=== PATIENT | female | born 1970 | race African-American/Black ===

== ENCOUNTER 2017-12-25 18:55 | Emergency (ER) | payer BC, OTHER ==
[~2017-12-25] VITALS: Ht 162.6 cm; Wt 65.3 kg
--- NOTE | ~2017-12-25 | EKG ---
[place] [address] [facility] [place] [address] ELECTROCARDIOGRAM REPORT Name: SALINAS SALEH Room #: [facility] JASON Sellers#: [id number] Admission: 12/25/17 Attend Phys: Discharge: 12/25/17 Date of : 66 Report #: [id number] THIS REPORT FOR: //name// Formerly [facility] ED Test Date: 2017-12-25 Test Time: 19:07:01 Pat Name: SALINAS SALEH Department: Room: Gender: F Chin Strap Cutter: JONY : 1970 Requested By: Jeffrey Darling Order Number: [id number] MD: Wilfred Wilson Measurements Intervals [place] Rate: 63 P: 52 DE: 146 QRS: 48 QRSD: 75 T: 8 QT: 413 QTc: 423 Interpretive Statements Sinus rhythm Probable left atrial enlargement No previous ECG available for comparison Electronically Signed On 12-28-2017 7:58:05 CDT by Wilfred Wilson [email or web address] <ELECTRONICALLY SIGNED> By: Wilfred Wilson MD 12/28/17 0758 [id number] Wilfred Wilson MD /JUDITH
[2017-12-25 19:51] LABS: ABSOLUTE NEUTROPHILS 1.8 thou/uL (1.4-8.2); BASOPHILS 0.2 % (0.0-2.0); EOSINOPHILS 0.9 % (0.0-3.0); HEMATOCRIT 40.3 % (37.0-47.0); HEMOGLOBIN 12.7 gm/dL (12.0-15.0); MCH 22.3 pg (26.0-34.0); MCHC 31.4 g/dL (28.0-37.0); MCV 70.8 fL (80.0-100.0); MONOCYTES 5.7 % (1.0-8.0); POLYS 41.2 % (36.0-66.0); RBC 5.69 mil/uL (4.20-5.00); RDW 14.6 % (10.5-14.5); WBC 4.4 thou/uL (4.0-11.0)
[2017-12-25 20:04] LABS: ANION GAP 12 mmol/L (7-16); BUN 15 mg/dL (7-18); CALCIUM 9.1 mg/dL (8.5-10.1); CHLORIDE 100 mmol/L (98-107); CO2 23 mmol/L (21-32); GLUCOSE 84 mg/dL (74-106); POTASSIUM 4.6 mmol/L (3.5-5.1); SODIUM 135 mmol/L (136-145); TOTAL BILIRUBIN 0.8 mg/dL (<0.1-1.0); TOTAL PROTEIN 7.9 g/dL (6.4-8.2)
[2017-12-25 20:18] LABS: PLATELET COUNT 153 thou/uL (150-400)
[2017-12-25 20:19] LABS: ANISOCYTOSIS 1+; HYPOCHROMASIA 2+; LARGE PLATELETS OCCASIONAL; MICROCYTES 1+; PLATELET ESTIMATE NORMAL
[2017-12-25 20:23] LABS: TROPONIN-I < 0.04 ng/mL (<0.06)
[2017-12-25 20:35] LABS: ALBUMIN 4.3 g/dL (3.4-5.0); CREATININE 0.7 mg/dL (0.6-1.0); SGOT 28 U/L (15-37); SGPT 14 U/L (30-65)
[2017-12-25] MEDS ORDERED: PEPCID20 MG PO (21:39)
[2017-12-25 22:24] VITALS: BP 121/67
== END 2017-12-25 22:24 | disposition home or self-care (01) ==
LOC: ER 18:55
PROVIDERS: Emergency Medicine
DX: R13.10 Dysphagia, unspecified (principal); R07.9 Chest pain, unspecified; Z91.018 Allergy to other foods

== ENCOUNTER 2018-08-13 16:16 | Inpatient (IN) | payer OTHER ==
[~2018-08-13] VITALS: Ht 165.1 cm; Wt 71.3 kg
[~2018-08-13 16:16] MED LIST: PEPCID20 MG PO
[2018-08-13 16:18] VITALS: BP 137/72
[2018-08-13] MEDS ORDERED: NORCO 7.5-3251 EACH PO (17:04)
[2018-08-13] MEDS ORDERED: ROBAXIN 750 MG750 M1 PO (17:05)
[2018-08-13] MEDS ORDERED: IBUPROFEN 200200 M1 PO (17:06)
[2018-08-13 18:13] VITALS: BP 136/44
[2018-08-13 19:06] LABS: ABSOLUTE NEUTROPHILS 2.1 thou/uL (1.4-8.2); BASOPHILS 0.3 % (0.0-2.0); EOSINOPHILS 0.6 % (0.0-3.0); HEMATOCRIT 37.1 % (37.0-47.0); HEMOGLOBIN 12.1 gm/dL (12.0-15.0); LYMPHOCYTES 41.9 % (24.0-44.0); MCH 22.9 pg (26.0-34.0); MCHC 32.7 g/dL (28.0-37.0); MCV 69.9 fL (80.0-100.0); MONOCYTES 5.3 % (1.0-8.0); PLATELET COUNT 142 thou/uL (150-400); POLYS 51.9 % (36.0-66.0); RBC 5.31 mil/uL (4.20-5.00); RDW 14.6 % (10.5-14.5); WBC 4.1 thou/uL (4.0-11.0)
[2018-08-13 19:09] LABS: CALCIUM 9.1 mg/dL (8.5-10.1); CREATININE 0.8 mg/dL (0.6-1.0); POTASSIUM 3.5 mmol/L (3.5-5.1)
[2018-08-13 19:30] VITALS: BP 140/71
--- NOTE | 2018-08-14 01:25 | NUR ---
Pt came up to unit approx 1914. Pt pleasant and a&o x4. Pt in room with a friend who is also authorized contact. Left ankle on splint. Pt complaints of back pain due to fall. Prn pain med administered and pain relief achieved. Pt does not want to change into a hospital gown because states pain is too high with movement. Pt has brought crutches from home which she uses to ambulate due to left ankle fracture. Pt calls appropriately. Will continue to assist with ADLs.
[2018-08-14 04:55] VITALS: BP 115/72
--- NOTE | 2018-08-14 07:52 | NUR ---
ASSUMED PT CARE AT APPROX 0300.PT WAS ASLEEP AT THE TIME.UP WITH SBA AND CRUTCHES TO [facility].CAST ON HER L ANKLE INTACT.REPORT TO AM NURSE.
[2018-08-14 08:10] VITALS: BP 117/64
--- NOTE | 2018-08-14 09:19 | NUR ---
A&0X4, HAS BEEN TO SEVERAL HOSPITALS IN THE LAST FEW DAYS, EXPLAINED FALL AND HER CONCERNS. ENCOURAGED HER TO USE CALL LIGHT FOR ANY NEEDS. SEE INTERVENTIONS OR ASSESSMENT
--- NOTE | 2018-08-14 10:38 | NUR ---
PT'S IV WAS NO LONGER PATENT AND HURTING HER, REMOVED, PLACED ICE, ENCOURAGED HER WITH DEEP SLOW BREATHING, ATTEMPTED ANOTHER IV IN LLE, SHE STATES THE USED 'DOPPLER' IN ER. CALLED IV TEAM, THEY'LL BE HERE AFTER SEVERAL PICC LINES. PT ASKING QUESTIONS, IN GOOD SPIRITS. ENCOURAGED HER TO CALL FOR ANY NEEDS
--- NOTE | 2018-08-14 10:52 | NUR ---
PHYSICIAN/STAFF CALL: DR. SCOTT ASKED FOR US TO ORDER MRI LUMBAR, ALERTED HER TO FACT IV WAS NO LONGER PATENT, REMOVED, ONE ATTEMPT MADE, IV TEAM CALLED AND AWARE AND WILL COME, CALLING INDERJIT BACK TO ASK IF W/CONTRAST OR W/O BEST WAY. CAN BE ORDERED STAT DR. SCOTT DID NOT WANT TO WAIT THE DURATION FOR SAFETY/HEALTH/COMFORT. RECORDS ORDERED FROM RESEARCH BY LEO ALATORRE
--- NOTE | 2018-08-14 11:34 | NUR ---
MRI W/CONTRAST WILL BE ORDERED PER JEM Alston, AND ALL ARE AWARE IV LINE WILL BE PLACED WHEN IV TEAM IS ABLE TO DO SO
--- NOTE | 2018-08-14 15:36 | NUR ---
PHYSICIAN COMM VIA AIRMAIL RE: NO BM X SEVERAL DAYS AND NO BM MED. ORDERS RECEIVED
[2018-08-14 16:40] VITALS: BP 103/61
[2018-08-14 18:21] LABS: URINE BILIRUBIN NEGATIVE (Negative); URINE BLOOD 1+ (Negative); URINE CLARITY CLEAR; URINE COLOR YELLOW; URINE GLUCOSE-RANDOM* NEGATIVE (Negative); URINE KETONES NEGATIVE (Negative); URINE LEUKOCYTES-REFLEX TRACE (Negative); URINE NITRITE-REFLEX NEGATIVE (Negative); URINE PROTEIN (DIPSTICK) NEGATIVE (Negative); URINE SPECIFIC GRAVITY < 1.005 (1.005-1.035); URINE UROBILINOGEN 0.2 E.U./dl (0.2-1.0)
[2018-08-14 18:29] LABS: BACTERIA-REFLEX None Seen /HPF (None Seen); CASTS None Seen /LPF (None Seen); SQUAMOUS 0-3 Few /LPF (0-3); URINE RBC 0-2 Rare /HPF (0-2)
[2018-08-14 18:30] LABS: CRYSTALS None Seen /LPF (None Seen); URINE WBC-REFLEX 0-5 Rare /HPF (0-5)
--- NOTE | 2018-08-14 18:37 | NUR ---
CHECKED ON PT TO SEE IF MAG CITRATE EFFECTIVE AND SHE'D GIVEN URINE SPECIMEN, FELT VERY FULL FROM MAG CITRATE AND DINNER, ENCOURAGED HER, AGAIN, TO REBA THE MAG CITRATE WITH WATER. ASKED IF SHE'D LIKE AN ANTIEMETIC AND SHE DECLINED. A PHYSICIAN WOULD NEED TO BE CONTACTED SHOULD SHE CHANGE HER MIND
[2018-08-14 20:10] VITALS: BP 101/63
--- NOTE | 2018-08-14 22:01 | NUR ---
ASSUMED PT CARE 1900. PT ALERT AND ORIENTED X4. PT LYING COMFORTABLY IN BED. VSS, LOW BP- WILL FOLLOW UP ON MIDNIGHT VITALS. SPLINT TO LLE NEUROVASCULAR CHECK INTACT. PT DENIES ANY NUMBNESS OR TINGLING. PT REPORTS LITTLE PAIN WHEN RESTING AND STATES PAIN IN SEVERE WHEN MOVING. PT DENIES PAIN MEDICINE AT THIS TIME. PT DENIES N/V. IV DRESSING C/D/I, NO SIGNS OF INFILTRATION. WILL CONTINUE POC UNTIL EOS.
[2018-08-15 00:57] VITALS: BP 107/73
[2018-08-15 06:55] VITALS: BP 101/61
[2018-08-15 08:50] VITALS: BP 102/67
[2018-08-15 16:40] VITALS: BP 108/58
[2018-08-15 20:30] VITALS: BP 112/63
--- NOTE | 2018-08-15 21:00 | NUR ---
PATIENT ALERT AND ORIENTED AND VERY PLEASANT. PATIENT IS ABLE TO AMBULATE WITH WALKER AND NWB LEFT LE. MRI IN THE AM. WILL CONTINUE TO MONITOR.
--- NOTE | 2018-08-16 03:17 | NUR ---
ASSUMED PT CARE 1900. PT ALERT AND ORIENTED X4. VSS. PT BLOOD PRESSURE LOW 100'S, PT ASYMPTOMATIC. PT DENIES PAIN WHILE LYING STILL BUT PAIN IS 10/10 WITH MOVEMENT. PT NOT WANTING PAIN MEDICATION. SPLINT TO L ANKLE. SENSATION INTACT, NEUROVASCULAR CHECK GOOD. PT REPORTS PERIODIC NUMBNESS AND TINGLING IN L TOES. IV DRESSING C/D/I, NO SIGNS OF INFILTRATION. WILL CONTINUE POC UNTIL EOS.
[2018-08-16 04:55] VITALS: BP 92/55
[2018-08-16 08:00] VITALS: BP 107/65
--- NOTE | 2018-08-16 13:30 | NUR ---
cm visited with pt at bedside, she is a & o x 3, pleasant and able to make her needs know. " got crutches from er and then that did not help and i had to come back. only fall from basement steps 15-20 step, no hand rail. very independent prior to hospital. insurance with [facility] is pending. no rehab or hh in past. just having back pain, had to use walker to get to bathroom here. thanks for visiting"/pt. will cont following as needed for dc needs. dcp home
--- NOTE | 2018-08-16 16:58 | NUR ---
REC PT TRANSFER AT 1655 VIA W/C WITH ALL BELONGINGS, PLUGGED PHONE IN, A&0X4, AWAITING ORDERS FOR HER BOOT FOR LLE, PAIN MODERATE WHEN STILL YET >10/10 W/MOVEMENT. RA. FILLED WATER CUP SET UP TRAY AND ENCOURAGED HER TO USE CALL LIGHT FOR ANY NEEDS
[2018-08-16 17:35] VITALS: BP 113/63
--- NOTE | 2018-08-16 18:27 | NUR ---
ASSUMED CARE OF PT AT 0700. A&O,X4. ASSESSMENT COMPLETED. C/O LEFT LOWER BACK AND HIP PAIN, PAIN MEDS GIVEN ORDERED. LIDOCAINE PATCH IN PLACE LOWER BACK AND LEFT HIP. DENIES N/V. LAST BM YESTERDAY. SKIN INTACT. NO EDEMA. ORTHO AT BEDSIDE TODAY, NEW ORDER FOR WALKING BOOT LEFT LEG. DR. LEHMAN ORDERED PAIN CLINIC CONSULT FOR JILLIAN AC TO SEE PT TOMORROW. PT TRANSFERED TO [facility]. ROOM 223. REPORT GIVEN TO YAZMIN. PT BELONGINGS SENT WITH PT. LEFT VIA WHEELCHAIR IN STABLE CONDITION AT 16:50.
[2018-08-16 21:13] VITALS: BP 113/63
--- NOTE | 2018-08-17 04:22 | NUR ---
PATIENT ALERT AND ORIENTED X4. C/O PAIN IN LLE AND BACK. SCHEDULED PAIN MED GIVEN. NWB ON LLE, UP TO BR WITH WALKER. LLE ELEVATED UP ON PILLOWS. SLEPT MOST OF NIGHT.
[2018-08-17 09:00] VITALS: BP 122/70
--- NOTE | 2018-08-17 10:29 | NUR ---
SW reviewed chart and spoke with nursing and attending physician. Pt was transferred to [facility] from and is progressing towards goals for discharge. Pain mgmt consult. Pt may have a steroid injection. Plan is for pt to discharge home when medically stable. CE is following to assist as needed with discharge planning.
--- NOTE | 2018-08-17 11:17 | NUR ---
ASSUMED PT CARE AT 0700. ASSESSED PT AT 0900. PT LYING IN BED. AWAKE, ALERT/ORIENTED X4. PT IS PLEASANT AND COOPERATIVE. REPORTS PAIN IN HER LEFT LOWER BACK RATED 5 WHEN SHE IS AT REST AND 10 WHEN SHE MOVES. CURRENT PAIN REGIMINE IS CONTROLLING PAIN. EDEMA NOTED TO LEFT ANKLE. WILL FOLLOW UP WITH PT ABOUT CAM BOOT FITTING AND WALKING. VITAL SIGNS ARE STABLE AND ASSESSMENT IS CHARTED. NO OTHER CONCERNS AT THIS TIME. WILL CONTINUE WITH CURRENT CARE.
--- NOTE | 2018-08-17 12:41 | NUR ---
PT DOING WELL THIS SHIFT. WORKED WITH PT WHO STATED SHE DID WELL WITH WBAT AND ONE CRUTCH. PT CONTINUES TO REFUSE SCHEDULED PAIN MEDICATION AND FLEXERIL. PHYSICIAN WAS CONTACTED FOR POSSIBLE PAIN MEDICATION CHANGE TO PRN. OTHERWISE PT RESTING IN BED WITH NO NEW CONERNS OR COMPLAINTS. WILL CONTINUE WITH CURRENT CARE.
[2018-08-17 13:28] VITALS: BP 121/60
--- NOTE | 2018-08-17 13:32 | NUR ---
Pain Clinic Assessment: 1. History of Osteoarthritis: History of Rheumatoid Arthritis: 2. Height: 5 ft. 5 in. 165.1 cm. Weight: 157.0 lb. oz. 71.215 kg. Patient's BMI: 26.1 3. Vital Signs: BP: 121/60 Pulse: 77 Resp: 19 Temp: 02 Sat: 98 ECG Mon: 4. Pain Intensity: 10 5. Fall Risk: Dizziness: Needs help standing or walking: Fallen in the last 3 months: Fall risk comments: 6. Patient on Blood Thinner: 7. History of Hypertension: N 8. Opioid Therapy greater than 6 weeks: N Opiate Contract Signed: 9. Risk Assessment Tool Provided: 10. Functional Assessment Tool: 11. Recreational Drug Use: Never Drug Type: Tobacco Use: Never Smoker Tobacco Type: Amount or Packs/day: How Many Years: Alcohol Use: No Frequency: Quant:
[2018-08-17 18:54] VITALS: BP 111/63
[2018-08-18 07:40] VITALS: BP 121/73
--- NOTE | 2018-08-18 07:40 | NUR ---
PATIENTS CARES WERE ASSUMED AT SHIFT CHANGE. PATIENT WAS ASSESSED AND MEDS WERE PASSED. PAIN MEDS WERE GIVEN SCHEDULED AND THE MUSCEL RELAXER WELL. HOURLY ROUNDS WERE DONE. PATIENT DID APPER TO BE SLEEPING WELL. THE BED IS IN A LOW AND LOCKED POSITION.
--- NOTE | 2018-08-18 11:12 | NUR ---
ASSUMED CARE OF PATIENT THIS MORNING. PATIENT IS ALERT AND ORIENTED X4. SHE IS UP WBAT WITH 1 CRUTCH. NO IV ACCESS. REHAB DIRECTOR OCCUPATIONAL THERAPIST NURSE CALLED PHYSICIAN FOR APPROVAL TO KEEP IV OUT, OK WITH PHYSICIAN. PATIENT HAS A LIDOCAINE PATCH APPLIED TO LEFT LOWER BACK AREA. NO ABNORMAL FINDINGS UPON ASSESSMENT. SHE WILL POSSIBLY BE DISCHARGED LATER TODAY. PATIENT WOULD LIKE TO SPEAK TO CASE MANAGEMENT ABOUT GETTING SETUP WITH HOME HEALTH. PATIENT IS CURRENTLY SITTING IN BED WITH CALL LIGHT WITHIN REACH. SHE CALLS OUT APPROPRIATELY FOR NEEDED ASSISTANCE.
[2018-08-18] MEDS ORDERED: LIDOPATCH1 EACH TRANSDERM (11:38)
[2018-08-18] MEDS ORDERED: NORCO 7.5-3251 EACH PO (11:38)
[2018-08-18] MEDS ORDERED: COLACE 100 MG100 MG PO (11:38)
[2018-08-18] MEDS ORDERED: PREDNISONE 20 M20 M1 PO (11:38)
[2018-08-18] MEDS ORDERED: CYCLOBENZAPRINE5 MG PO (11:38)
[2018-08-18 12:17] VITALS: BP 121/73
--- NOTE | 2018-08-18 12:19 | NUR ---
DISCHARGE NOTE: SW reviewed chart and spoke with nursing and attending physician. Pt is medically stable for discharge home today. Orders written for HH. CE met with pt at bedside to discuss discharge plan. CE confirmed pt's home address and phone number: [address] [place] [address] . Pt's PCP is Dr. Mary Alexadner. Pt asked who would be able to give her the order to be able to return to work. SW encouraged pt to follow up with her PCP and ortho. Pt verbalized understanding. Pt's family to provide transportation home. SW notified intake at [facility] of new referral and discharge orders. Contact info for [facility] placed in pt's discharge summary. No additional SW needs identified at this time, but is available to assist should needs arise.
--- NOTE | 2018-08-18 18:26 | NUR ---
I AGREE WITH NURSING ASSESSMENT DONE BY JUDITH/GARZYNA.
--- NOTE | 2018-08-20 06:49 | HPC ---
[facility] [place] [address] PAIN MANAGEMENT CONSULTATION Name: SALINAS SALEH Room #: 223-P [facility] M.R.#: [id number] Admission: 08/13/18 Attend Phys: Amalia Park MD Discharge: 08/18/18 Date of : 66 Report #: [id number] THIS REPORT FOR: //name// CC: Mary Park DATE OF SERVICE: 08/17/2018 REFERRING PHYSICIAN: Kamran Sims MD CHIEF COMPLAINT: Low back and left buttock pain. HISTORY OF PRESENT ILLNESS: As you know, the patient is a very pleasant 48-year-old female, admitted on 08/13/2018 after sustaining a fall down her stairs while carrying laundry. She felt instantaneous left ankle pain and left buttock pain. She was subsequently admitted to the hospital due to concerns of injury in her back and her left ankle. She was found to have a nondisplaced ankle fracture on the lateral side deemed to be nonsurgical. She has been placed in a CAM boot to ambulate. She underwent MRI of lumbar spine, which showed a diffuse disk bulge at L4-L5 with encroachment, but no abutment or effacement of the central canal, no central canal stenosis, no neuroforaminal stenosis. There was noted at the L5-S1 level a possible annular tear, small in nature, no central canal or neuroforaminal stenosis, rest of the lumbar spine normal. Due to ongoing pain issues we were requested to evaluate the patient for possible lumbar epidural injection under fluoroscopic guidance. The patient has not had any history of low back symptoms in her past. She had instantaneous back pain after the fall. PAST MEDICAL HISTORY: None. PAST SURGICAL HISTORY: None. ALLERGIES: No known drug allergies. CURRENT MEDICATIONS: Hydrocodone 7.5/325 one tab every 8 hours p.r.n. for pain, methocarbamol 750 mg 6 times a day, ibuprofen 200 mg 3 times a day, famotidine 20 mg p.o. at bedtime. SOCIAL HISTORY: The patient denies tobacco, alcohol, IV or illicit drug use. She is unaccompanied at today's visit. IMAGING: MRI lumbar spine obtained 08/16/2018 shows broad-based disk bulges at L4-L5 and L5-S1. They mildly narrow the lateral recess, mildly encroaching upon the descending L5 nerve roots bilaterally. No effacement and no abutment. The central canal is patent. There is a small annular tear at L5-S1 with associated [address] [address] PAIN MANAGEMENT CONSULTATION Name: SALINAS SALEH Room #: Replaced by [facility] IN M..#: [id number] Admission: 08/13/18 Attend Phys: Amalia Park MD Discharge: 08/18/18 Date of : 66 Report #: [id number] broad-based disk bulge, typical finding of a 48-year-old female. No central canal or neuroforaminal stenosis noted at any level. PHYSICAL EXAMINATION: GENERAL: Well-developed, well-nourished, well-hydrated 48-year-old female, appears her stated age. She is in no acute distress, awake, alert and oriented x 3. Current pain rated at 4-5/10. HEENT: Normocephalic, atraumatic. Pupils equal, round, reactive to light. Extraocular muscles are intact. Sclerae nonicteric, conjunctivae without injection. NEUROLOGIC: Cranial nerves 2-12 grossly intact. Speech fluent. The patient deemed a good historian. LUNGS: Clear, no wheeze, no rhonchi, no rales. CARDIOVASCULAR: Regular. No appreciable gallop, no rub. ABDOMEN: Soft, nontender, nondistended, normoactive bowel sounds. EXTREMITIES: Show no clubbing, no cyanosis. The patient is placed in a CAM boot on the right and is able to weightbear mildly. MUSCULOSKELETAL: Lower extremity strength appears symmetrical 5/5 except no testing was done on the ankle and foot on the left. She appears to be intact to light touch from L1 through S2 dermatomes grossly. Seated straight leg raising negative. Supine straight leg raising negative. DRE test negative. Modified Gaenslen's positive for some axial low back pain. Ankle clonus negative. Babinski is negative. ASSESSMENT: 1. Acute lumbar sprain. 2. 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 3. Small L5-S1 annular tear. PLAN: 1. The patient has been requested to be evaluated by our services today for lumbar radiculopathy. I am unable to elicit any radicular component of the patient's symptoms. Her symptoms do start in the back, radiate to the buttock area, but this is noted mainly with ambulation. She has denied any symptoms radiating below the buttock area. Symptoms began after a fall she sustained while doing laundry at her home. We reviewed with the patient the findings of the MRI. The disk bulging noted at L4-L5 and L5-S1 are typical for age-related findings and are mild in nature. They are diffuse in their presentation indicating a circumferential style disk bulge typical for a 48-year-old female who has been weightbearing against gravity. The findings at the L4-L5 level with lateral recess and mildly encroaching the descending L5 nerve roots does not appear to be causing effacement or abutment of the nerve roots. There is no displacement of the roots themselves and this is a typical type of finding noted in a female of her age, they do not seem to correlate with the patient's current symptoms and are only unilateral, not fitting with the findings of the bilateral nerve roots being affected. There is a possibility that she has had a minor [facility] [address] [place] [address] PAIN MANAGEMENT CONSULTATION Name: SALINAS SALEH Room #: 223-P [facility] M.R.#: [id number] Admission: 08/13/18 Attend Phys: Amalia Park MD Discharge: 08/18/18 Date of : 66 Report #: [id number] irritation to the L5 nerve root on the left, but this is not apparent on the MRI and her distribution of symptoms do not cause a dermatomal distribution easily identified as a radiculopathy. The finding at the L5-S1 level with small annular tear and associated broad-based disk bulge is not an unusual finding. The annular tears can cause some discomfort similar to what the patient is experiencing, though, as you are aware, innervation of the disk is quite controversial. In fact, the majority of individuals with discogenic pain have had longstanding disk injuries that led to neovascularization and carolin-innervation that that is believed to be the source of symptoms and not the sinuvertebral nerve treated in the past with IDET therapy. We have discussed with the patient the findings of her MRI. The following was discussed for treatment options while she is inpatient. We discussed physical therapy, stretching exercises and traction techniques. This can be quite beneficial. This would take more time than an inpatient hospital stay could provide and will have to be followed up as an outpatient. We discussed adjustments in her medication, increasing her prednisone therapy to a style more like a Medrol Dosepak, taking six 4 mg tablets for the first day, then reducing 1 tablet every day over a 6-day period, coming off the medication entirely. We also discussed utilizing hydrocodone for breakthrough pain. This is an appropriate treatment option acutely, but certainly not a long-term treatment option. She can be sent home with dosing of that medication. We also discussed the requested epidural injection under fluoroscopic guidance with the patient today. After reviewing the risks and benefits of all the proposed treatment options, the patient chose to make adjustments in medication therapy and did not wish to undergo an epidural injection due to her concerns of paralysis with this injection. 2. Would recommend increasing the patient's prednisone dosing to methylprednisolone, would suggest taking six 4 mg tablets for the first day, then five 4 mg tablet for the second day, reducing by one tablet until off, very similar to a Medrol Dosepak. This will provide the patient with good initial steroid exposure that would improve the patient's overall pain. We would then utilize hydrocodone for breakthrough pain as necessary. This would be a good combination for initial treatment. The patient preferred this option over epidural injection. 3. We would be willing and have established the patient's appointment on an outpatient basis in approximately a week and a half. The patient will be evaluated at that time for possible injection if the medications and tincture of time do not improve the patient's overall symptoms. 4. We wish to thank Dr. Sims for the referral of the patient to our clinic. We will follow the patient's requested treatment option utilizing conservative management initially. If this is ineffective, she could be seen as an outpatient to undergo a lumbar epidural injection under fluoroscopic guidance. [facility] [address] [place] [address] PAIN MANAGEMENT CONSULTATION Name: SALINAS SALEH Room #: 223-P [facility] IN M.R.#: [id number] Admission: 08/13/18 Attend Phys: Amalia Park MD Discharge: 08/18/18 Date of : 66 Report #: [id number] Again, we wish to thank Dr. Sims for the referral of this patient to our clinic. <ELECTRONICALLY SIGNED> By: Jorge Hester DO 08/20/18 0649 [id number] [id number] Jorge Hester DO /nt
== END 2018-08-18 18:27 | disposition home health service (06) | DRG 552 ==
LOC: ER 16:16 → 4E 18:03 → SICU 18:03 → EROBS 18:03 → 4E 18:48 → ENTRNSPT 08-16 16:06 → SICU 08-16 17:51 → ENTRNSPT 08-18 18:10 → SICU 08-18 18:27
PROVIDERS: Emergency Medicine; ADMIT Internal Medicine
DX: M51.06 Intervertebral disc disorders with myelopathy, lumbar region (principal); S92.155A Nondisplaced avulsion fracture (chip fracture) of left talus, initial encounter for closed fracture; W10.9XXA Fall (on) (from) unspecified stairs and steps, initial encounter; S39.012A Strain of muscle, fascia and tendon of lower back, initial encounter; M51.26 Other intervertebral disc displacement, lumbar region; M51.37 Other intervertebral disc degeneration, lumbosacral region; K59.03 Drug induced constipation; T40.695A Adverse effect of other narcotics, initial encounter; S30.1XXA Contusion of abdominal wall, initial encounter; S92.025A Nondisplaced fracture of anterior process of left calcaneus, initial encounter for closed fracture; S92.255A Nondisplaced fracture of navicular [scaphoid] of left foot, initial encounter for closed fracture; Y93.89 Activity, other specified; Y92.89 Other specified places as the place of occurrence of the external cause; Y99.8 Other external cause status; Z79.899 Other long term (current) drug therapy; Z91.018 Allergy to other foods
CPT/HCPCS: 10084; 15002

== ENCOUNTER → 2018-08-31 | Outpatient (CLI) | payer OTHER ==
[~2018-08-31] VITALS: Ht 165.1 cm; Wt 68.0 kg
[~2018-08-31] MED LIST changes: +COLACE 100 MG100 MG PO; +CYCLOBENZAPRINE5 MG PO; +IBUPROFEN 200200 M1 PO; +LIDOCARE1 EACH TRANSDERM; +LIDOPATCH1 EACH TRANSDERM; +NORCO 7.5-3251 EACH PO; +PREDNISONE 20 M20 M1 PO; +PREDNISONE 20 M20 MG PO; +ROBAXIN 750 MG750 M1 PO
[2018-08-31 12:46] VITALS: BP 123/81
--- NOTE | 2018-08-31 13:12 | NUR ---
Pain Clinic Assessment: 1. History of Osteoarthritis: Not Applicable History of Rheumatoid Arthritis: NNA 2. Height: 5 ft. 5 in. 165.1 cm. Weight: 150.0 lb. oz. 68.040 kg. Patient's BMI: 25.0 3. Vital Signs: BP: 123/81 Pulse: 70 Resp: 14 Temp: 02 Sat: 100 ECG Mon: 4. Pain Intensity: 7 5. Fall Risk: Dizziness: Y Needs help standing or walking: Y Fallen in the last 3 months: Y Fall risk comments: 6. Patient on Blood Thinner: None 7. History of Hypertension: N 8. Opioid Therapy greater than 6 weeks: N Opiate Contract Signed: 9. Risk Assessment Tool Provided: LOW RISK 0/3 10. Functional Assessment Tool: 49/ 11. Recreational Drug Use: Never Drug Type: Tobacco Use: Never Smoker Tobacco Type: Amount or Packs/day: How Many Years: Alcohol Use: No Frequency: Quant:
--- NOTE | 2018-09-01 10:54 | HPC ---
[facility] [place] [address] PAIN MANAGEMENT CONSULTATION Name: SALINAS SALEH Room #: REG PATRICIA MBull.#: [id number] Admission: 08/31/18 Attend Phys: Jorge Hester DO Discharge: Date of : 66 Report #: [id number] THIS REPORT FOR: //name// CC: Jorge OBRIEN DATE OF SERVICE: 08/31/2018 REFERRING PHYSICIAN: Nurse practitioner, MICAH Higgins. CHIEF COMPLAINT: Low back pain and left buttock pain. HISTORY OF PRESENT ILLNESS: As you know, the patient is a very pleasant 48-year-old female who was seen in consultation on 08/17/2018 for low back pain and left buttock pain. The patient was referred to our clinic by her attending physician, Dr. Kamran Sims for evaluation for suspected lumbar radiculopathy. At that visit, she was diagnosed with lumbar radiculopathy secondary to the displacement of lumbar intervertebral disk and facet arthropathy of the lumbar spine. The patient at that visit chose to continue with conservative medical therapy. She did not wish to undergo interventional treatments at that time. She was subsequently discharged from the hospital with plans to follow up with her PCP. She has followed up with her nurse practitioner, Mary Alexander, who referred the patient back to our clinic as her pain has not improved. She is placing her pain today at 7/10, daily average is 7/10, worst the pain has been is 10/10. The patient states her pain began 02/05/2018 where she sustained a fall down the stairs carrying laundry has led to a left ankle fracture for which she has been evaluated by Orthopedics and treated with a Cam boot but it also led to ongoing low back pain, believed to be due to a displaced intervertebral disk at the L4-L5 level. She indicates today pain is continuous, rhythmic, describes the pain as burning, shooting, aching, tender, numbness and tingling; exacerbated with sitting too long, standing too long or walking; improves with lying on her back. She has been referred back to our clinic to discuss treatment options for lumbar radiculopathy. PAST MEDICAL HISTORY: None. PAST SURGICAL HISTORY: 1. Breast biopsy. 2. Lipoma excision. SOCIAL HISTORY: The patient denies tobacco, alcohol or IV or illicit drug use. She works as a medical claims assistant. She has been out of the workforce since 08/09/2018. She is not currently working. She is unaccompanied today. REVIEW OF SYSTEMS: Positive for weight change, fever and night sweats, [place] [address] PAIN MANAGEMENT CONSULTATION Name: SALINAS SALEH Room #: REG Chano Ceron.John.#: [id number] Admission: 08/31/18 Attend Phys: Jorge Hester DO Discharge: Date of : 66 Report #: [id number] and weakness, shortness of breath, walking or lying flat, palpitations, constipation, painful menses, irregular menses, lightheadedness and dizziness, numbness and tingling sensations, low back pain, left lower extremity pain. All other review of systems negative per 12-point review of systems other than those listed in history of present illness. Pain impact score 49/70 indicating [id number] interference of daily activities secondary to pain. ALLERGIES: No known drug allergies. CURRENT MEDICATIONS: Cyclobenzaprine 5 mg t.i.d., Lidoderm patch apply topically up to 3 times a day, prednisone 20 mg p.o. every day and hydrocodone/acetaminophen 7.5/325 one tab p.o. q. 6 hours p.r.n. pain. IMAGING DATA: MRI of the lumbar spine obtained on 08/16/2018 shows broad-based disk bulge at L4-L5, which mildly narrows the lateral recess, mildly encroaches upon the descending L5 nerve roots bilaterally, small annular tear at L5-S1 with associated broad-based disk bulging, central canal is not grossly narrow, no evidence of foraminal stenosis. No central canal or neural foraminal stenosis noted throughout the lumbar spine and L2-L3 and L3-L4 unremarkable. PHYSICAL EXAMINATION: VITAL SIGNS: Blood pressure 123/81, pulse 70, respiratory rate 14 and unlabored. The patient is 100% on room air. Height 5 feet 5 inches tall, weight 150 pounds and BMI calculated 25.0. GENERAL: Well-developed, well-nourished and well-hydrated 48-year-old female appearing her stated age. She is in no acute distress, awake, alert and oriented x 3. Current pain score is 7/10. HEENT: Normocephalic and atraumatic. Pupils equal, round and reactive to light. Extraocular muscles are intact. Sclerae nonicteric without injection. NEUROLOGICAL: Cranial nerves 2 through 12 grossly intact. Speech is fluent. EXTREMITIES: Show no clubbing, no cyanosis and no edema. There is a Cam boot noted on her left side. MUSCULOSKELETAL: Lower extremity strength symmetrical 5/5. She appears to be intact to light touch from L1 through S2 dermatomes. Seated straight leg raising negative. Supine straight leg raising negative. Randolph's test negative. Modified Gaenslen's positive for axial low back pain. Ankle clonus negative. Babinski is negative. ASSESSMENT: 1. Suspected lumbar radiculopathy. 2. Broad-based disk bulge at L4-L5. 3. Lumbosacral spondylosis with radiculopathy. 4. Small annular tear at L5-S1. 5. Intractable pain. PLAN: [facility] [address] [place] [address] PAIN MANAGEMENT CONSULTATION Name: SALINAS SALEH Room #: REG Chano Ceron.John.#: [id number] Admission: 08/31/18 Attend Phys: Jorge Hester DO Discharge: Date of : 66 Report #: [id number] 1. The patient has returned today in followup visit indicating no improvement in symptoms with conservative treatment option. When we saw the patient in the hospital on 08/17/2018, the patient was seeing some improvement with prednisone therapy. They were to continue the prednisone as a post-hospitalization treatment, but this apparently has been ineffective at controlling her ongoing pain issues. She has been referred back to our service to discuss the possibility of treatment options for lumbar radiculopathy. She returns to discuss these options today. We discussed physical therapy, stretching exercise, core strengthening as a core treatment option. We discussed medication management with the addition of a neuropathic pain medication in conjunction with the current medications. We also discussed the addition of a nonsteroidal anti-inflammatory. We discussed lumbar epidural injections for which the patient was referred to our clinic. We also discussed spinal cord stimulator therapy and surgical options. After reviewing the risks and benefits of all the proposed treatment options, the patient chose to move forward with a lumbar epidural injection under fluoroscopic guidance. The patient was advised third constitution party payer restrictions require the authorization be obtained before the patient can undergo a lumbar epidural injection. Authorization will take anywhere from 4-7 working days. We will begin this process immediately, contact the patient once this authorization has been achieved. We will then have the patient return to undergo the first in a series of lumbar epidural injections. 2. The patient will be started on Lyrica 50 mg tablet 1 tab p.o. bedtime for 3 nights and then increase to 2 tabs p.o. at bedtime. I have given the patient samples of this medication. We are utilizing this for neuropathic pain control. The patient will watch for side effects of somnolence, decreased mental acuity, disorientation, confusion, mental slowing if she notes any side effects to contact our clinic after decreasing the dose. 3. We will see the patient back in followup visit once we have achieved authorization to undergo the epidural injection requested. We will contact her by phone once this authorization has occurred and we will have her return as quickly as possible. 4. We wish to thank nurse practitioner, Mary Alexander for the referral of this patient to our clinic. We will keep you apprised of response to treatment as we address lumbar radicular symptoms. Again, we wish to thank you for the opportunity to see the patient in consultation. <ELECTRONICALLY SIGNED> By: Jorge Hester DO 09/01/18 [id number] Jorge Hester DO /nt
== END ==
LOC: PAIN 06:54
DX: M47.27 Other spondylosis with radiculopathy, lumbosacral region (principal); M51.16 Intervertebral disc disorders with radiculopathy, lumbar region; G89.4 Chronic pain syndrome; Z79.899 Other long term (current) drug therapy

== ENCOUNTER → 2020-01-19 | Outpatient (CLI) | payer OTHER | LOC: ULTRA 11:13 | PROVIDERS: ATTEND Nurse Practitioner | DX: E04.2 Nontoxic multinodular goiter (principal); E04.9 Nontoxic goiter, unspecified ==